=== PATIENT | female | born 1930 | race Caucasian/White ===

== ENCOUNTER 2018-12-27 13:48 | Emergency (ER) | payer MEDICARE, MEDICAID ==
--- NOTE | 2018-12-27 15:06 | RAD ---
LEFT FEMUR 2 VIEWS: Date: 12/27/18 HISTORY: Fall. Left lower extremity pain. FINDINGS: A left femoral head prosthesis is present, in good position and alignment. There is an incomplete fra cture involving the outer cortex of the mid shaft of the left femur. There are postop changes of knee replacement. IMPRESSION: Incomplete fracture of mid shaft of left femur. POS: [facility]
== END 2018-12-27 18:11 | disposition home or self-care (01) ==
LOC: ERS 13:48
DX: S72.302A Unspecified fracture of shaft of left femur, initial encounter for closed fracture (principal); I10 Essential (primary) hypertension; E03.9 Hypothyroidism, unspecified; F03.90 Unspecified dementia, unspecified severity, without behavioral disturbance, psychotic disturbance, mood disturbance, and anxiety; F32.9 Major depressive disorder, single episode, unspecified; I49.9 Cardiac arrhythmia, unspecified; Z79.899 Other long term (current) drug therapy; Z79.82 Long term (current) use of aspirin; W19.XXXA Unspecified fall, initial encounter